=== PATIENT | female | born 1975 | race Caucasian/White ===

== ENCOUNTER 2016-10-01 20:21 | Emergency (ER) | payer OTHER ==
[~2016-10-01] VITALS: Ht 165.1 cm; Wt 84.1 kg
[2016-10-01 21:38] LABS: HEMATOCRIT 43.5 % (36.0-46.0); MCH 29.2 PG (29.0-34.0); MCHC 34.9 G/DL (30.0-36.0); MCV 83.7 FL (83-99); MEAN PLAT.VOLUME 11.1 uM^3 (9.5-12.4); PLATELET COUNT 275 K/uL (156-360); RBC DIS.WIDTH-CV 12.3 % (11.8-14.6); RBC DIS.WIDTH-SD 37.1 % (39-53); WHITE BLOOD COUNT 12.2 K/uL (4.1-10.2)
[2016-10-01 21:46] LABS: CHLORIDE 102 mEq/L (99-109); POTASSIUM 4.1 mEq/L (3.7-5.4); SODIUM 138 mEq/L (136-147)
[2016-10-01 21:47] LABS: GLUCOSE 122 mg/dL (70-99)
[2016-10-01 21:49] LABS: ANION GAP 11 MEQ/L (2-14)
[2016-10-01 21:51] LABS: GFR ESTIMATE (CALCULATED) > 59 mL/min/
[2016-10-01 21:52] LABS: UREA NITROGEN (BUN) 11 mg/dL (9-23)
[2016-10-01] MEDS ORDERED: MECLIZINE HCL25 MG PO (21:53)
[2016-10-01] MEDS ORDERED: AMOXICILLIN875 MG PO (21:53)
[2016-10-01 22:02] LABS: QUANTITATIVE HCG < 4.0 MIU/ML
[2016-10-01 23:33] VITALS: BP 156/78
== END 2016-10-01 23:47 | disposition home or self-care (01) ==
LOC: EME 20:21
PROVIDERS: Physician Assistant
DX: R42 Dizziness and giddiness (principal); H65.91 Unspecified nonsuppurative otitis media, right ear; J32.9 Chronic sinusitis, unspecified
CPT/HCPCS: 80048; 84702; 85027; 99281; 99285; J1100; J1885; J7030

== ENCOUNTER 2016-10-10 14:40 | Inpatient (IN) | payer OTHER ==
[~2016-10-10] VITALS: Ht 165.1 cm; Wt 82.8 kg
[~2016-10-10 14:40] MED LIST: AMOXICILLIN875 MG PO; MECLIZINE HCL25 MG PO
[2016-10-10 18:06] LABS: HEMATOCRIT 39.6 % (36.0-46.0); MCH 28.7 PG (29.0-34.0); MCHC 34.1 G/DL (30.0-36.0); MCV 84.1 FL (83-99); MEAN PLAT.VOLUME 10.5 uM^3 (9.5-12.4); PLATELET COUNT 267 K/uL (156-360); RBC DIS.WIDTH-CV 11.9 % (11.8-14.6); RBC DIS.WIDTH-SD 35.8 % (39-53); RED BLOOD COUNT 4.71 M/uL (3.80-5.20); WHITE BLOOD COUNT 14.3 K/uL (4.1-10.2)
[2016-10-10 18:18] LABS: CHLORIDE 104 mEq/L (99-109); SODIUM 137 mEq/L (136-147)
[2016-10-10 18:20] LABS: GLUCOSE 104 mg/dL (70-99)
[2016-10-10 18:21] LABS: ANION GAP 10 MEQ/L (2-14)
[2016-10-10 18:22] LABS: TOTAL BILIRUBIN 0.5 mg/dL (0.0-1.0)
[2016-10-10 18:23] LABS: ALKALINE PHOSPHATASE 68 IU/L (3-129)
[2016-10-10 18:24] LABS: GFR ESTIMATE (CALCULATED) > 59 mL/min/
[2016-10-10 18:25] LABS: UREA NITROGEN (BUN) 7 mg/dL (9-23)
[2016-10-10 18:34] LABS: QUANTITATIVE HCG < 4.0 MIU/ML
[2016-10-10] MEDS ORDERED: PROGESTERONE200 MG PO (18:35)
[2016-10-10] MEDS ORDERED: PROZAC20 MG PO (18:36)
[2016-10-10] MEDS ORDERED: METHYLDOPA250 MG PO (18:37)
[2016-10-10] MEDS ORDERED: MOTRIN IB200 MG PO (18:38)
[2016-10-10] MEDS ORDERED: LORAZEPAM0.5 MG PO (18:40)
[2016-10-10] MEDS ORDERED: PROMETHAZINE HC25 M1 PO (18:41)
[2016-10-10] MEDS ORDERED: ANTIVERT25 MG PO (18:43)
[2016-10-10 23:14] VITALS: BP 141/94
[2016-10-11 06:18] LABS: HEMATOCRIT 41.8 % (36.0-46.0); MCH 28.7 PG (29.0-34.0); MCHC 34.2 G/DL (30.0-36.0); MCV 83.9 FL (83-99); MEAN PLAT.VOLUME 10.4 uM^3 (9.5-12.4); PLATELET COUNT 287 K/uL (156-360); RBC DIS.WIDTH-SD 36.2 % (39-53); RED BLOOD COUNT 4.98 M/uL (3.80-5.20)
[2016-10-11 06:36] LABS: ANION GAP 10 MEQ/L (2-14); CHLORIDE 106 MEQ/L (99-109); GFR ESTIMATE (CALCULATED) > 59 mL/min/; GLUCOSE 144 mg/dL (70-99); POTASSIUM 4.5 MEQ/L (3.7-5.4); SAMPLE HEMOLYSIS CHECK 0; SAMPLE ICTERIC CHECK 0; SAMPLE LIPEMIA CHECK 0; SODIUM 138 MEQ/L (136-147); UREA NITROGEN (BUN) 10 mg/dL (9-23)
[2016-10-11 07:48] VITALS: BP 131/78
[2016-10-11 23:55] VITALS: BP 145/83
[2016-10-12 08:03] VITALS: BP 140/78
[2016-10-12 15:48] VITALS: BP 149/85
[2016-10-13 01:06] VITALS: BP 135/72
[2016-10-13 07:58] VITALS: BP 129/86
[2016-10-13] MEDS ORDERED: ALPRAZOLAM0.25 M2 PO (08:13)
[2016-10-13] MEDS ORDERED: TORADOL10 MG PO (08:13)
[2016-10-13] MEDS ORDERED: DEXAMETHASONE4 MG PO (08:13)
[2016-10-13] MEDS ORDERED: FAMOTIDINE20 MG PO (08:13)
[2016-10-13] MEDS ORDERED: KEPPRA500 MG PO (08:13)
[2016-10-13 11:50] VITALS: BP 129/80
== END 2016-10-13 12:06 | disposition home or self-care (01) | DRG 987 ==
LOC: EME 14:40 → EDOF 21:10 → 5EAST 21:10 → ENRESERV 21:19 → 5EAST 23:08 → ENPENDDIS 10-13 → 5EAST 10-13 12:06
PROVIDERS: Hospitalist; Nurse Practitioner Family
PROC: 0HBU0ZX Excision of Left Breast, Open Approach, Diagnostic (ICD-10-PCS; principal; 2016-10-12)
DX: C79.31 Secondary malignant neoplasm of brain (principal); C50.912 Malignant neoplasm of unspecified site of left female breast; C78.7 Secondary malignant neoplasm of liver and intrahepatic bile duct; G93.6 Cerebral edema; N83.9 Noninflammatory disorder of ovary, fallopian tube and broad ligament, unspecified; I10 Essential (primary) hypertension; C77.5 Secondary and unspecified malignant neoplasm of intrapelvic lymph nodes; C77.3 Secondary and unspecified malignant neoplasm of axilla and upper limb lymph nodes; F41.9 Anxiety disorder, unspecified
CPT/HCPCS: 70450; 70553; 71260; 74177; 76856; 77290; 77307; 77334; 77412; 80048; 80053; 84702; 85027; 88305; 88342 TC; 88360; 93971; 99281; 99285; J1100; J1650; J1885; J1953; J2405; J3010; J3360; J7030; J7050; J8540

== ENCOUNTER 2016-11-10 15:05 | Inpatient (IN) | payer OTHER ==
[~2016-11-10] VITALS: Ht 162.6 cm; Wt 80.6 kg
[~2016-11-10 15:05] MED LIST changes: +ALPRAZOLAM0.25 M2 PO; +ANTIVERT25 MG PO; +DEXAMETHASONE4 MG PO; +FAMOTIDINE20 MG PO; +KEPPRA500 MG PO; +LORAZEPAM0.5 MG PO; +METHYLDOPA250 MG PO; +MOTRIN IB200 MG PO; +PROGESTERONE200 MG PO; +PROMETHAZINE HC25 M1 PO; +PROZAC20 MG PO; +TORADOL10 MG PO
[2016-11-10 16:19] LABS: EOSINOPHIL (%) 0.1 % (0-5); HEMATOCRIT 40.3 % (36.0-46.0); IMMATURE GRANULOCYTE COUNT 0.2 K/uL; LYMPHOCYTE COUNT 0.9 K/uL (1.0-2.8); MCH 29.7 PG (29.0-34.0); MCHC 34.2 G/DL (30.0-36.0); MCV 86.9 FL (83-99); MEAN PLAT.VOLUME 9.2 uM^3 (9.5-12.4); MONOCYTE (%) 6.3 % (3-12); NEUTROPHIL (%) 86.3 % (45-76); PLATELET COUNT 190 K/uL (156-360); RBC DIS.WIDTH-CV 13.7 % (11.8-14.6); RBC DIS.WIDTH-SD 42.8 % (39-53); RED BLOOD COUNT 4.64 M/uL (3.80-5.20); WHITE BLOOD COUNT 15.1 K/uL (4.1-10.2)
[2016-11-10 16:28] LABS: CHLORIDE 100 mEq/L (99-109); POTASSIUM 3.5 mEq/L (3.7-5.4); SODIUM 133 mEq/L (136-147)
[2016-11-10 16:29] LABS: POINT-OF-CARE METER ID UU13113747
[2016-11-10 16:30] LABS: GLUCOSE 113 mg/dL (70-99)
[2016-11-10 16:31] LABS: ANION GAP 11 MEQ/L (2-14)
[2016-11-10 16:32] LABS: TOTAL BILIRUBIN 0.5 mg/dL (0.0-1.0)
[2016-11-10 16:33] LABS: SERUM ETHYL ALCOHOL < 10 mg/dL
[2016-11-10 16:34] LABS: ALKALINE PHOSPHATASE 70 IU/L (3-129); GFR ESTIMATE (CALCULATED) > 59 mL/min/
[2016-11-10 16:36] LABS: UREA NITROGEN (BUN) 10 mg/dL (9-23)
[2016-11-10 16:37] LABS: SALICYLATE < 5.0 MG/DL (15-30)
[2016-11-10 16:44] LABS: QUANTITATIVE HCG < 4.0 MIU/ML
[2016-11-10 17:14] LABS: ADD MIUA? YES; BILIRUBIN NEGATIVE; BLOOD MODERATE; COLOR YELLOW ((YELLOW)); GLUCOSE (STRIP) NEGATIVE; KETONES NEGATIVE; LEUKOCYTES MODERATE; NITRITE NEGATIVE; PROTEIN (STRIP) NEGATIVE; SPECIFIC GRAVITY 1.014 (1.000-1.030); UROBILINOGEN 0.2 MG/DL (0.2-1.0)
[2016-11-10 17:23] LABS: AMPHETAMINE NEGATIVE (500 ng/mL); BARBITURATES NEGATIVE (200 ng/mL); BENZODIAZEPINES NEGATIVE (150 ng/mL); COCAINE NEGATIVE (150 ng/mL); INTERNAL CONTROLS VALID? YES; METHADONE NEGATIVE (200 ng/mL); METHAMPHETAMINE NEGATIVE (500 ng/mL); OPIATES (MORPHINE) NEGATIVE (100 ng/mL); OXYCODONE NEGATIVE (100 ng/mL); PHENCYCLIDINE NEGATIVE (25 ng/mL); PROPOXYPHENE NEGATIVE (300 ng/mL); THC CANNABINOIDS PRESUMPTIVE POSITIVE (50 ng/mL); TRICYCLIC ANTIDEPRESSANTS NEGATIVE (300 ng/mL)
[2016-11-10 17:24] LABS: ADD MEDTOX COMMENT Y
[2016-11-10 17:29] LABS: BACTERIA 2+ /HPF; CASTS PRESENT /LPF; EPITHELIAL CELLS 1+ /HPF; MUCUS NONE SEEN /LPF; UCUL ADDED? YES; WHITE BLOOD CELLS 15-20 /HPF (0-5)
[2016-11-10 17:30] LABS: HYALINE CASTS 0-5 /LPF
[2016-11-10] MEDS ORDERED: DEXAMETHASONE4 MG PO (17:37)
[2016-11-10] MEDS ORDERED: ZOFRAN8 MG PO (17:38)
[2016-11-10 19:25] LABS: BASE EXCESS 3.7 mEq/L (-3 to +3); BICARBONATE 26.1 mEq/L (22-26); CARBOXY HGB 0.5 % (0-5); COMMENTS - BLOOD GASES A+C+; DEVICE VENT; FI02 100 %; MECHANICAL RATE 18 resp/min; METHEMOGLOBIN 0.9 % (0-1.5); MODE AC; PCO2 32 mm Hg (35-45); PEEP 5 CM/H20; PO2 464 mm Hg (80-100); SITE LR; TIDAL VOLUME 450 ML; TOTAL RESP RATE 24 resp/min; pH 7.52 (7.35-7.45)
[2016-11-10 20:00] VITALS: BP 138/66
[2016-11-10 20:15] VITALS: BP 142/85
[2016-11-10 21:00] VITALS: BP 120/68
[2016-11-10 21:44] LABS: METH RESISTANT S AUREUS PCR NEGATIVE (NEGATIVE)
[2016-11-10 21:45] LABS: PROBE CHECK PASS; SPECIMEN PROCESSING CONTROL PASS
[2016-11-10 22:00] VITALS: BP 137/70
[2016-11-10 23:00] VITALS: BP 132/84
[2016-11-11] VITALS (15 sets, daily range): BP systolic 106–150; BP diastolic 56–97
[2016-11-11 05:36] LABS: HEMATOCRIT 40.2 % (36.0-46.0); MCH 30.7 PG (29.0-34.0); MCHC 34.6 G/DL (30.0-36.0); MCV 88.7 FL (83-99); MEAN PLAT.VOLUME 9.9 uM^3 (9.5-12.4); PLATELET COUNT 179 K/uL (156-360); RBC DIS.WIDTH-CV 14.1 % (11.8-14.6); RBC DIS.WIDTH-SD 44.8 % (39-53); RED BLOOD COUNT 4.53 M/uL (3.80-5.20); WHITE BLOOD COUNT 14.4 K/uL (4.1-10.2)
[2016-11-11 06:02] LABS: ALKALINE PHOSPHATASE 53 IU/L (3-129); ANION GAP 9 MEQ/L (2-14); CHLORIDE 106 MEQ/L (99-109); GFR ESTIMATE (CALCULATED) > 59 mL/min/; POTASSIUM 4.2 MEQ/L (3.7-5.4); SAMPLE HEMOLYSIS CHECK 0; SAMPLE ICTERIC CHECK 0; SAMPLE LIPEMIA CHECK 0; TOTAL BILIRUBIN 0.5 MG/DL (0.0-1.0); UREA NITROGEN (BUN) 7 mg/dL (9-23)
[2016-11-11 06:04] LABS: GLUCOSE 179 mg/dL (70-99); SODIUM 142 MEQ/L (136-147)
[2016-11-12 00:45] VITALS: BP 105/59
[2016-11-12 05:56] LABS: HEMATOCRIT 38.3 % (36.0-46.0); MCH 30.5 PG (29.0-34.0); MCHC 34.2 G/DL (30.0-36.0); MCV 89.3 FL (83-99); MEAN PLAT.VOLUME 10.1 uM^3 (9.5-12.4); PLATELET COUNT 176 K/uL (156-360); RBC DIS.WIDTH-CV 14.5 % (11.8-14.6); RBC DIS.WIDTH-SD 46.4 % (39-53); RED BLOOD COUNT 4.29 M/uL (3.80-5.20); WHITE BLOOD COUNT 13.2 K/uL (4.1-10.2)
[2016-11-12 06:28] LABS: ANION GAP 9 MEQ/L (2-14); CHLORIDE 107 MEQ/L (99-109); GFR ESTIMATE (CALCULATED) > 59 mL/min/; POTASSIUM 4.2 MEQ/L (3.7-5.4); SAMPLE HEMOLYSIS CHECK 1; SAMPLE ICTERIC CHECK 0; SAMPLE LIPEMIA CHECK 0; SODIUM 141 MEQ/L (136-147); UREA NITROGEN (BUN) 10 mg/dL (9-23)
[2016-11-12 06:29] LABS: GLUCOSE 110 mg/dL (70-99)
[2016-11-12 08:04] VITALS: BP 119/68
[2016-11-12 11:08] VITALS: BP 127/76
[2016-11-12 16:43] VITALS: BP 121/70
[2016-11-12 19:41] VITALS: BP 138/84
[2016-11-13 00:16] VITALS: BP 122/71
[2016-11-13 04:06] VITALS: BP 122/68
[2016-11-13 06:44] LABS: HEMATOCRIT 38.7 % (36.0-46.0); MCH 30.6 PG (29.0-34.0); MCHC 34.1 G/DL (30.0-36.0); MCV 89.8 FL (83-99); MEAN PLAT.VOLUME 9.8 uM^3 (9.5-12.4); PLATELET COUNT 188 K/uL (156-360); RBC DIS.WIDTH-CV 13.9 % (11.8-14.6); RBC DIS.WIDTH-SD 45.8 % (39-53); RED BLOOD COUNT 4.31 M/uL (3.80-5.20); WHITE BLOOD COUNT 9.4 K/uL (4.1-10.2)
[2016-11-13 07:09] LABS: ANION GAP 11 MEQ/L (2-14); CHLORIDE 104 MEQ/L (99-109); GFR ESTIMATE (CALCULATED) > 59 mL/min/; GLUCOSE 116 mg/dL (70-99); POTASSIUM 4.3 MEQ/L (3.7-5.4); SAMPLE HEMOLYSIS CHECK 0; SAMPLE ICTERIC CHECK 0; SAMPLE LIPEMIA CHECK 0; SODIUM 141 MEQ/L (136-147); UREA NITROGEN (BUN) 14 mg/dL (9-23)
[2016-11-13 07:33] VITALS: BP 129/55
[2016-11-13 11:15] VITALS: BP 128/73
[2016-11-13 16:38] VITALS: BP 127/68
[2016-11-13 23:05] VITALS: BP 137/77
[2016-11-14 07:15] VITALS: BP 143/92
[2016-11-14] MEDS ORDERED: CAPECITABINE500 MG PO ×2 (09:08)
[2016-11-14] MEDS ORDERED: DEXAMETHASONE4 MG PO (09:08)
== END 2016-11-14 11:49 | disposition home or self-care (01) | DRG 54 ==
LOC: EME 15:05 → EDOF 18:10 → 5EAST 18:10 → ENRESERV 18:15 → 4WEST 19:43 → ENRESERV 11-11 13:16 → 5EAST 11-11 14:41 → ENPENDDIS 11-14 → 5EAST 11-14 11:49
PROVIDERS: Emergency Medicine; Internal Medicine; Specialist
PROC: 5A1935Z Respiratory Ventilation, Less than 24 Consecutive Hours (ICD-10-PCS; principal; 2016-11-10)
PROC: 0BH17EZ Insertion of Endotracheal Airway into Trachea, Via Natural or Artificial Opening (ICD-10-PCS; 2016-11-10)
DX: C79.31 Secondary malignant neoplasm of brain (principal); G93.5 Compression of brain; G93.6 Cerebral edema; J96.01 Acute respiratory failure with hypoxia; N39.0 Urinary tract infection, site not specified; C78.7 Secondary malignant neoplasm of liver and intrahepatic bile duct; C50.912 Malignant neoplasm of unspecified site of left female breast; I10 Essential (primary) hypertension; Z17.1 Estrogen receptor negative status [ER-]; Z80.3 Family history of malignant neoplasm of breast; Z92.3 Personal history of irradiation
CPT/HCPCS: 36600; 70450; 71010; 80048; 80053; 81003; 82803; 82948; 83605; 84702; 84999; 85025; 85027; 87070; 87086; 87205; 87641; 93005; 94002; 94003; 99281; 99285; G0480; J0696; J1100; J1644; J1953; J2060; J2405; J2704; J7030; J7042; J7050; J8521; J8540; S0028

== ENCOUNTER → 2016-12-05 | Outpatient (CLI) | payer OTHER ==
[~2016-12-05] MED LIST changes: +CAPECITABINE500 MG PO; +ZOFRAN8 MG PO
== END | disposition home or self-care (01) ==
LOC: MRI 13:56 → RAD 14:30
DX: G93.89 Other specified disorders of brain (principal); R51 Headache
CPT/HCPCS: 70553

== ENCOUNTER → 2017-01-23 | Outpatient (CLI) | payer OTHER | END | disposition home or self-care (01) | LOC: RAD 10:34 | DX: C50.012 Malignant neoplasm of nipple and areola, left female breast (principal); C78.5 Secondary malignant neoplasm of large intestine and rectum; N85.8 Other specified noninflammatory disorders of uterus; R59.1 Generalized enlarged lymph nodes | CPT/HCPCS: 71260; 74177 ==

== ENCOUNTER → 2017-04-25 | Outpatient (CLI) | payer OTHER | END | disposition home or self-care (01) | LOC: RAD 08:08 | DX: C50.012 Malignant neoplasm of nipple and areola, left female breast (principal); K76.9 Liver disease, unspecified; N85.8 Other specified noninflammatory disorders of uterus; C79.31 Secondary malignant neoplasm of brain; C78.7 Secondary malignant neoplasm of liver and intrahepatic bile duct; R41.0 Disorientation, unspecified; R51 Headache; H53.9 Unspecified visual disturbance; M62.81 Muscle weakness (generalized) | CPT/HCPCS: 70470; 71260; 74177 ==